=== PATIENT | female | born 1945 | race Caucasian/White ===

== ENCOUNTER 2021-02-05 15:57 | Outpatient (REF) | payer MEDICARE, SELFPAY ==
[2021-02-05 17:18] LABS: MANUAL DIFF FLAG NO
[2021-02-05 17:24] LABS: Basophils Absolute Auto 0.1 X10*3/uL (0.0-0.2); Basophils Percent Auto 0.8 % (0-2); Eosinophils Absolute Auto 0.1 X10*3/uL (0.0-0.4); Eosinophils Percent Auto 1.8 % (0-4); Hematocrit 47.6 % (37-47); Hemoglobin 15.5 g/dl (12.0-16.0); Imm Gran Abs Auto 0.03 X10*3/uL (0.00-0.03); Imm Gran Pct Auto 0.4 % (0.0-0.4); Lymphocytes Absolute Auto 1.9 X10*3/uL (1.2-4.9); Lymphocytes Percent Auto 24.9 % (20-40); Mean Corpuscular HGB Conc 32.6 g/dl (31.0-35.0); Mean Corpuscular Hemoglobin 30.3 pg (27.0-33.0); Mean Corpuscular Volume 93.2 fL (80-98); Mean Platelet Volume 11.3 fL (9.4-12.3); Monocytes Absolute Auto 0.6 X10*3/uL (0.1-1.2); Monocytes Percent Auto 7.3 % (2-11); Neutrophils Percent Auto 64.8 % (45-73); Platelet Count 186 X10*3/uL (160-400); Red Blood Count 5.11 X10*6/uL (4.20-5.50); Red Cell Distribution Width 13.9 % (11.0-16.0); White Blood Count 7.7 X10*3/uL (4.8-10.8)
[2021-02-05 17:57] LABS: Alanine Aminotransferase 45 U/L (0-31); Albumin Level 4.4 g/dL (3.5-5.0); Alkaline Phosphatase 104 U/L (39-117); Aspartate Amino Transferase 59 U/L (5-31); Bilirubin Direct 0.5 mg/dL (0.0-0.5); C Reactive Protein 0.81 mg/dL (< or = 0.50); Total Protein 7.6 g/dL (6.5-8.0)
== END 2021-02-05 15:58 | disposition home or self-care (01) ==
LOC: HO.LAB 15:57
PROVIDERS: Visit Provider Internal Medicine
DX: K62.5 Hemorrhage of anus and rectum (principal); R19.4 Change in bowel habit
CPT/HCPCS: 36415; 80076; 85025; 86140

== ENCOUNTER 2021-02-06 14:34 | Outpatient (REF) | payer MEDICARE, SELFPAY ==
[2021-02-06 16:18] LABS: CDIFF Ag Negative (Negative); CDIFF Internal ctrl Dots and bkg OK (V); CDiff Toxin Negative (Negative)
[2021-02-06 16:40] LABS: Leukocytes Stool Qualitative MANY: >10/OIF (NEGATIVE)
== END 2021-02-06 14:35 | disposition home or self-care (01) ==
LOC: HO.LNP 14:34
PROVIDERS: Visit Provider Internal Medicine
DX: R19.4 Change in bowel habit (principal)
CPT/HCPCS: 87045; 87046; 87324; 87449; 89055

== ENCOUNTER 2021-02-18 10:00 | Day surgery (SDC) | payer MEDICARE, SELFPAY ==
--- NOTE | 2021-02-14 13:54 | HO.ANESPROP2 ---
Documented by User: Yoselyn Tesfaye 02/15/21 10:18 HPI - Anesthesia Eval Consult details Narrative: 75yo F for Upper Endoscopy and Colonoscopy PMFSH Past Medical History Medical History Negron esophagus HTN (hypertension) Hx of breast cancer Hx of bronchitis Surgical History Surgical History H/O foot surgery History of bladder suspension procedure History of total abdominal hysterectomy History of total hip arthroplasty History of total knee replacement Hx of appendectomy Hx of breast surgery Hx of cholecystectomy Hx of colonoscopy Hx of esophagogastroduodenoscopy Social History Social History Smoking Status: Never smoker Use of substances other than those prescribed or required for medical reasons: No Advance Directives: No Advance Directives Information Provided: Yes Meds Allergies Allergy/AdvReac Type Severity Reaction Status Date / Time No Known Allergies Allergy Verified 02/18/21 11:36 Exam Exam Date and Time: February 14, 2021 1354 Assessment and Plan Assessment Anesthesia Assessment: Chart Reviewed Documented by User: Violet Mccord 02/18/21 11:56 PMFSH Past Medical History Medical History Negron esophagus HTN (hypertension) Hx of breast cancer Hx of bronchitis Family History Family history of problems with anesthesia: No Surgical History Surgical History H/O foot surgery History of bladder suspension procedure History of total abdominal hysterectomy History of total hip arthroplasty History of total knee replacement Hx of appendectomy Hx of breast surgery Hx of cholecystectomy Hx of colonoscopy Hx of esophagogastroduodenoscopy History of Problems with Anesthesia: No Social History Social History Smoking Status: Never smoker Use of substances other than those prescribed or required for medical reasons: No Advance Directives: No Advance Directives Information Provided: Yes Meds Allergies Allergy/AdvReac Type Severity Reaction Status Date / Time No Known Allergies Allergy Verified 02/18/21 11:36 Exam Exam Date and Time: Height 4 ft 10 in Weight 86.183 kg Vital Signs Temp Pulse Resp BP Pulse Ox 02/18/21 11:38 98.4 F 60 18 146/75 H 95 Airway Mallampati Class: III (Small mouth) TM Dist: >3cm Neck ROM: Full Heart: RRR Lungs: CTAB Assessment and Plan Assessment Anesthesia Assessment: Anesthesia Plan Discussed and Chart Reviewed Final Anesthetic Review NPO: Yes ASA Class: III Final Preanesthetic Review: No Changes in Pt Med Stat, Meds/Allgs Chart Reviewed, Consent Obtained/Reviewed and Anes Risks/Benef Reviewed Patient Risk: Intermediate Procedure Risk: Low Assessment/Block/Sedation in SS: Assess/Block/Sedation-SS Anesthetic Plan Anesthetic Plan: MAC: Disposition: Standard PACU
[2021-02-18 11:20] VITALS: BMI 39.6
[2021-02-18 11:38] VITALS: BP 146/75; PULSE 60; RESP 18; TEMP 36.9; O2SAT 95
[2021-02-18] MEDS: Lactated Ringers 1,000 ML 100 ML IVCONT (11:56)
[2021-02-18 13:46] VITALS: BP 116/55; PULSE 58; RESP 14; TEMP 36.4; O2SAT 96
--- NOTE | 2021-02-18 13:47 | PM.OP ---
Brief Operative Note Date of Service: 02/18/21 Pre-op diagnosis: Negron's, Diarrhea Post-op diagnosis: other (Negron's, Hiatal hernia, Gastric polyps,R/O Celiac disease, Colon polyps, R/O Microscopic colitis) Procedure: EGD with biopsies, Colonoscopy to the cecum and TI with bx, bx/removal of polyp, snare polypectomy, clipping x 5 at 60cm, 50cm, and Rectum. Surgeon: Bebeto Cobb Anesthesia: MAC Estimated blood loss (mL): 5.0 Pathology: other (A. Desc. duodenum B. EG Junction at 30cm C. Gastric polyps D. Prox AC polyp E. TI F. Asc. colon G. Asc. colon polyp H. Desc. colon I. Polyp at 50cm J. Rectal polyp) Condition: stable Disposition: PACU
[2021-02-18 14:01] VITALS: BP 117/61; PULSE 58; RESP 18; TEMP 36.3; O2SAT 95
--- NOTE | 2021-02-18 18:34 | OP_ITS ---
SURGEON: Bebeto Cobb MD INDICATIONS: Full consent has been obtained from her for both procedures, including risks of bleeding and perforation. PREOPERATIVE DIAGNOSIS: POSTOPERATIVE DIAGNOSIS: PROCEDURE PERFORMED: Esophagogastroduodenoscopy with biopsies, and colonoscopy to the cecum and terminal ileum with biopsy, biopsy and removal of polyp, snare polypectomy, and placement of resolution clips. ESTIMATED BLOOD LOSS: COMPLICATIONS: ANESTHESIA: Monitored anesthesia care. ASSISTANTS: SPECIMENS: PREOPERATIVE DIAGNOSES: Negron's esophagus, gastroesophageal reflux, diarrhea, rectal bleeding. POSTOPERATIVE DIAGNOSES: Negron's esophagus, gastroesophageal reflux, diarrhea, rectal bleeding, hiatal hernia, gastric polyps, rule out celiac disease, colon polyps, rule out microscopic colitis. DESCRIPTION OF PROCEDURE: The patient was placed in the left lateral decubitus position. The Olympus video gastroscope was passed in the posterior oropharynx and upper esophagus under direct vision. The scope was passed slowly to the distal esophagus. The gastroesophageal junction appeared at 30 cm. At this level, were several short projections of mucosa grossly consistent with Negron's esophagus. These were all just 1 or 2 cm in length. There was no esophagitis nor any lesions. The scope entered into the stomach. There was a moderate-sized hiatal hernia. In the hiatal hernia pouch, was an inflammatory appearing gastric polyp. The scope was advanced to pylorus and the duodenum was cannulated to the descending portion. The duodenum including the bulb appeared normal without mass or ulceration. Biopsies were obtained from the descending duodenum. Scope was withdrawn back into the stomach. The gastric antrum and body appeared normal with good peristalsis. In the retroflexed position and forward viewing position, were multiple inflammatory appearing gastric polyps. Two or three of these were biopsied. They were friable. None were completely removed. The scope was withdrawn back in the esophagus. Biopsies were obtained from the area of probable Negron's mucosa at the EG junction. Proximal to this, the esophageal mucosa appeared normal. The scope was withdrawn from the patient. She was turned around for colonoscopy. The digital rectal exam revealed no abnormalities. The Olympus video pediatric colonoscope was entered into the rectum and advanced easily to the cecum. Once in the cecum, I did identify cecal pouch with appendiceal orifice and a normal-appearing ileocecal valve. The terminal ileum was cannulated and appeared normal. Biopsies were obtained from the terminal ileum. The scope was withdrawn back in the colon. The entire cecum and ileocecal valve appeared normal. The scope was slowly withdrawn assessing all mucosal surfaces carefully. Preparation was excellent. In the very proximal ascending colon, was a flat approximately 4 mm polyp, which was biopsied and completely removed with cold biopsy forceps. In the more distal ascending colon, was an approximately 12 to 15 mm raised, but flat polyp, which was snared and removed completely in piecemeal fashion with all pieces recovered for pathology by suction. The polypectomy site appeared clean, without any sign of residual polyp nor bleeding. I did obtain random biopsies in the ascending colon as well to rule out microscopic colitis. In the transverse colon, were 2 approximately 6 to 8 mm polyp, both of which was snared and removed completely, but not recovered. At 60 cm, was an approximately 8 to 10 mm polyp, which was snared, but not recovered. The polypectomy site did not have any residual polyp tissue, but there was some oozing and therefore, this was clipped once with good hemostasis and good deployment. Random biopsies were obtained at the descending colon to rule out microscopic colitis. At 50 cm, was an approximately 15 mm flat, but raised polyp, which was snared and removed completely. This was recovered by suction. A single clip was deployed on that polypectomy site with good deployment and good hemostasis. There was a moderate amount of sigmoid diverticulosis. I did not visualize any evidence of colitis nor angiodysplasia. In the rectum, seen primarily in the forward viewing position, was an approximately 15 mm polyp on a broad stalk. This was snared and recovered by retrieving it on the tip of the scope. The scope was then readvanced back to the polypectomy site, which appeared to be more in the mid rectum than the distal rectum. There was no sign of any residual polyp. Three clips were placed on the polypectomy site with good deployment and good hemostasis. Internal hemorrhoids were noted in the retroflexed position as well. The scope was withdrawn from the patient. She tolerated both procedures well and was returned to recovery area in stable condition. IMPRESSION: 1. Hiatal hernia, history of Negron's esophagus. 2. Gastric polyps. 3. Rule out celiac disease. 4. Colon polyps. 5. Rule out microscopic colitis. 6. Rule out celiac disease. PLAN: The results of the pathology will be checked. Given the multiple polyps found today, I would recommend a repeat colonoscopy in 1 year for further screening and surveillance. She was advised not to use any aspirin or NSAIDs for at least 1 week. She was advised to begin using Imodium 1 or 2 pills up to 4 times a day for the diarrhea. She was advised to see me in 1 month for followup, but to call sooner as needed. This has been discussed with her daughter. MD TOBIAS Bran/TOMMY / [id number] MTDD
== END 2021-02-18 14:00 | disposition home or self-care (01) ==
PROVIDERS: Visit Provider Internal Medicine
PROC: (CPT 45385; principal; 2021-02-18 11:10)
DX: K62.5 Hemorrhage of anus and rectum (principal); R19.4 Change in bowel habit; D12.2 Benign neoplasm of ascending colon; D12.5 Benign neoplasm of sigmoid colon; D12.8 Benign neoplasm of rectum; K57.30 Diverticulosis of large intestine without perforation or abscess without bleeding; K64.8 Other hemorrhoids; K21.9 Gastro-esophageal reflux disease without esophagitis; K22.70 Barrett's esophagus without dysplasia; K31.7 Polyp of stomach and duodenum; K44.9 Diaphragmatic hernia without obstruction or gangrene; I10 Essential (primary) hypertension; Z85.3 Personal history of malignant neoplasm of breast; Z90.49 Acquired absence of other specified parts of digestive tract; Z79.82 Long term (current) use of aspirin; Z79.899 Other long term (current) drug therapy
CPT/HCPCS: 45385; 45380; 43239; 88305; 88342

== ENCOUNTER 2022-11-25 11:21 | Outpatient (REF) | payer MEDICARE, SELFPAY ==
--- NOTE | ~2022-11-25 | MM_ITS ---
EXAMINATION: MM SCREENING DIGITAL BREAST TOMOSYNTHESIS, BILATERAL CLINICAL INFORMATION: Screening. Asymptomatic. Left lumpectomy for breast cancer, 1981. Family history breast cancer, daughter. COMPARISON: Mammography: 01/11/2000, 05/24/2019, 10/22/2018, 10/12/2018, 09/22/2017; left breast ultrasound 10/22/2018 TECHNIQUE: Digital breast tomosynthesis is performed in both the craniocaudal and mediolateral oblique views along with computer-aided detection (CAD). Synthesized 2D images are generated from the tomosynthesis. FINDINGS: The breasts are almost entirely fatty (ACR BI-RADS breast composition Category a). There are no significant masses, abnormal calcifications, or other abnormalities. Background stromal markings are normal. No developing density or interval architectural abnormality. There are stable post therapy changes left decreased breast size consistent with the remote lumpectomy. No significant changes. MM/MM tomosynthesis screening BI IMPRESSION: No mammographic evidence of malignancy. ASSESSMENT: BI-RADS 2: Benign RECOMMENDATION: Routine annual mammography screening. This patient's information was entered into a reminder system with a target due date for their next mammogram.
== END 2022-11-25 11:22 | disposition home or self-care (01) ==
LOC: HO.MAMMO 11:21
PROVIDERS: Visit Provider Internal Medicine
DX: Z12.31 Encounter for screening mammogram for malignant neoplasm of breast (principal)
CPT/HCPCS: 77063; 77067